=== PATIENT | female | born 1990 | race Two or more races ===

== ENCOUNTER 2019-06-28 16:12 | Emergency (ER) | payer OTHER ==
[~2019-06-28] VITALS: Ht 162.6 cm; Wt 117.8 kg
[2019-06-28 16:15] VITALS: BP 135/99
[2019-06-28 16:53] LABS: BASOPHILS # (AUTO) 0.03 x10^3/uL (0-0.1); BASOPHILS % (AUTO) 0 % (0-1); EOSINOPHILS # (AUTO) 0.34 x10^3/uL (0-0.4); EOSINOPHILS % (AUTO) 6 % (1-7); LYMPHOCYTES # (AUTO) 1.98 x10^3/uL (1-3.4); LYMPHOCYTES % (AUTO) 32 % (22-44); MD NO; MEAN CORPUSCULAR HEMOGLOBIN 29.5 pg (27.0-34.8); MEAN CORPUSCULAR HGB CONC 32.3 g/dL (32.4-35.8); MEAN CORPUSCULAR VOLUME 91.2 fL (80-100); MEAN PLATELET VOLUME 10.4 fL (7.4-10.4); MONOCYTES # (AUTO) 0.43 x10^3/uL (0.2-0.8); MONOCYTES % (AUTO) 7 % (2-9); NEUTROPHILS # (AUTO) 3.41 x10^3/uL (1.8-6.8); NEUTROPHILS % (AUTO) 55 % (42-75); PLATELET COUNT 245 x10^3/uL (130-400); RED BLOOD COUNT 4.78 x10^6/uL (3.82-5.3); RED CELL DISTRIBUTION WIDTH 13.7 % (9.6-15.2)
[2019-06-28 17:02] LABS: ALBUMIN 3.9 g/dL (3.4-5.0); ANION GAP 8 mmol/L (5-15); CALCIUM 8.9 mg/dL (8.5-10.1); CHLORIDE 109 mmol/L (98-107); CREATININE 0.72 mg/dL (0.55-1.02)
--- NOTE | 2019-06-28 19:33 | NUR ---
PT RECLINED IN BED, RESPIRATIONS EVEN AND UNLABORED ON RA. AT BEDSIDE. SIDE RAIL UP, CALL LIGHT IN REACH. AWAITING ERMD EVAL.
== END 2019-06-28 21:14 | disposition home or self-care (01) ==
LOC: ED 21:05
DX: J03.90 Acute tonsillitis, unspecified (principal)
CPT/HCPCS: 36415; 71045; 80048; 82040; 85025; 93005; 99284

== ENCOUNTER → 2020-05-01 | Outpatient (CLI) | payer OTHER ==
[2020-05-01 09:58] LABS: BASOPHILS # (AUTO) 0.05 x10^3/uL (0-0.1); BASOPHILS % (AUTO) 1 % (0-1); EOSINOPHILS # (AUTO) 0.62 x10^3/uL (0-0.4); EOSINOPHILS % (AUTO) 9 % (1-7); LYMPHOCYTES # (AUTO) 2.03 x10^3/uL (1-3.4); LYMPHOCYTES % (AUTO) 30 % (22-44); MD NO; MEAN CORPUSCULAR HEMOGLOBIN 29.6 pg (27.0-34.8); MEAN CORPUSCULAR HGB CONC 32.1 g/dL (32.4-35.8); MEAN CORPUSCULAR VOLUME 92.1 fL (80-100); MEAN PLATELET VOLUME 8.7 fL (7.4-10.4); MONOCYTES # (AUTO) 0.28 x10^3/uL (0.2-0.8); MONOCYTES % (AUTO) 4 % (2-9); NEUTROPHILS # (AUTO) 3.88 x10^3/uL (1.8-6.8); NEUTROPHILS % (AUTO) 57 % (42-75); PLATELET COUNT 318 x10^3/uL (130-400); RED BLOOD COUNT 4.58 x10^6/uL (3.82-5.3); RED CELL DISTRIBUTION WIDTH 14.3 % (9.6-15.2)
[2020-05-01 10:05] LABS: INTERNATIONAL NORMALIZED RATIO 0.97 (0.93-1.1)
[2020-05-01 10:07] LABS: ALANINE AMINOTRANSFERASE 19 U/L (12-78); ALBUMIN 3.6 g/dL (3.4-5.0); ANION GAP 5 mmol/L (5-15); CALCIUM 8.9 mg/dL (8.5-10.1); CHLORIDE 107 mmol/L (98-107); CREATININE 0.58 mg/dL (0.55-1.02)
[2020-05-01 10:11] LABS: ALKALINE PHOSPHATASE 55 U/L (45-117); BILIRUBIN,TOTAL 0.4 mg/dL (0.2-1.0); TOTAL PROTEIN 7.7 g/dL (6.4-8.2)
== END | disposition home or self-care (01) ==
LOC: STAR 07:23
PROVIDERS: ATTEND Obstetrics & Gynecology
DX: Z01.818 Encounter for other preprocedural examination (principal); Z20.828 Contact with and (suspected) exposure to other viral communicable diseases; R19.00 Intra-abdominal and pelvic swelling, mass and lump, unspecified site; R10.2 Pelvic and perineal pain
CPT/HCPCS: 36415; 80053; 84703; 85025; 85610; 85730; 87635; 93005

== ENCOUNTER 2020-05-05 06:49 | Inpatient (IN) | payer OTHER ==
[~2020-05-05] VITALS: Ht 160 cm; Wt 87.0 kg
[2020-05-05] MEDS ORDERED: CHLORHEXIDINE 15 ML UDC ONE (07:56)
[2020-05-05] MEDS ORDERED: LACTATED RINGERS 1,000 ML IV SCH (08:14)
[2020-05-05 08:23] LABS: HCG UR SG 1.022 (1.003-1.030)
[2020-05-05] MEDS ORDERED: CEFOTETAN PMX 2GM/50ML 50 ML IV ONE (08:30)
[2020-05-05] MEDS ORDERED: CHLORHEXIDINE 15 ML UDC MM ONE (08:30)
[2020-05-05] MEDS ORDERED: FENTANYL PF 250 MCG/5ML ONE ×2 (08:48→11:40)
[2020-05-05] MEDS ORDERED: MIDAZOLAM 1 MG/ML, 2ML ONE (08:48)
[2020-05-05] MEDS ORDERED: SODIUM CHLORIDE 0.9% 100 ML ONE (09:21)
[2020-05-05] MEDS ORDERED: VASOPRESSIN 20 UNIT/ML, 1ML ONE (09:22)
[2020-05-05] MEDS ORDERED: BUPIVACAINE/PF 0.5% ONE ×8 (09:43→10:19)
[2020-05-05] MEDS ORDERED: ROCURONIUM 10MG/ML,5ML ONE (09:51)
[2020-05-05] MEDS ORDERED: hydrALAzine 20 MG/ML, 1ML IV PRN (10:00)
[2020-05-05] MEDS ORDERED: MEPERIDINE/PF 25MG/0.5ML IVPush PRN (10:00)
[2020-05-05] MEDS ORDERED: ACETAMINOPHEN 325 MG TABLET PO PRN ×2 (10:00→12:30)
[2020-05-05] MEDS ORDERED: DIPHENHYDRAMINE 50 MG/ML, 1ML IVPush PRN ×2 (10:00→12:30)
[2020-05-05] MEDS ORDERED: EPHEDRINE 50 MG/ML, 1ML IVPush PRN (10:00)
[2020-05-05] MEDS ORDERED: LABETALOL 5MG/ML, 20ML IV PRN (10:00)
[2020-05-05] MEDS ORDERED: HYDROmorphone 1 MG/ML, 1ML INJ IVPush PRN (10:00)
[2020-05-05] MEDS ORDERED: OXYcodone 5 MG/5 ML ORAL.SOL UDC PO PRN (10:00)
[2020-05-05] MEDS ORDERED: PROMETHAZINE 12.5 MG SUPP PR PRN (10:00)
[2020-05-05] MEDS ORDERED: LORazepam 2 MG/ML, 1ML IVPush PRN (10:00)
[2020-05-05] MEDS ORDERED: INTERCEED 3 X 4 INCH DRESSING ONE (11:20)
[2020-05-05] MEDS ORDERED: ONDANSETRON 2MG/ML, 2ML ONE (11:25)
[2020-05-05] MEDS ORDERED: CEFAZOLIN 1,000 MG ONE (11:25)
[2020-05-05] MEDS ORDERED: PROPOFOL 10 MG/ML, 20ML ONE (11:25)
[2020-05-05] MEDS ORDERED: SUCCINYLCHOLINE 20 MG/ML, 10ML ONE (11:25)
[2020-05-05] MEDS ORDERED: DEXAMETHASONE 4 MG/ML, 1ML ONE (11:25)
[2020-05-05] MEDS ORDERED: SUGAMMADEX 200 MG/2 ML IVPush ONE (11:39)
[2020-05-05] MEDS ORDERED: BUPIVACAINE/PF 0.25% ONE (12:22)
[2020-05-05] MEDS ORDERED: EPINEPHRINE 1 MG/ML, 1ML ONE (12:22)
[2020-05-05] MEDS ORDERED: KETOROLAC 30 MG/1 ML IVPush PRN (12:30)
[2020-05-05] MEDS ORDERED: KETOROLAC 30 MG/1 ML ONE (13:07)
[2020-05-05] MEDS ORDERED: FENTANYL PF 100 MCG/2ML ONE (13:07)
[2020-05-05] MEDS: FENTANYL PF 100 MCG/2ML IV PRN ×2 (13:15→13:32)
[2020-05-05] MEDS ORDERED: ONDANSETRON 2MG/ML, 2ML IVPush PRN (15:30)
[2020-05-05] MEDS ORDERED: PROCHLORPERAZINE 5 MG/ML, 2ML IV PRN (15:30)
[2020-05-05] MEDS: LACTATED RINGERS 1,000 ML IV SCH (18:30)
[2020-05-05 19:24] VITALS: BP 143/92
[2020-05-05] MEDS: DOCUSATE 100 MG CAPSULE PO SCH (20:14)
[2020-05-06 00:01] VITALS: BP 134/89
[2020-05-06] MEDS: LACTATED RINGERS 1,000 ML IV SCH ×3 (01:30→18:29)
[2020-05-06 01:32] VITALS: BP 136/87
[2020-05-06 03:56] VITALS: BP 128/86
[2020-05-06 05:45] LABS: CHLORIDE 108 mmol/L (98-107)
[2020-05-06 05:51] LABS: ANION GAP 7 mmol/L (5-15); CALCIUM 8.5 mg/dL (8.5-10.1); CREATININE 0.51 mg/dL (0.55-1.02)
[2020-05-06 06:16] LABS: MEAN CORPUSCULAR HEMOGLOBIN 29.5 pg (27.0-34.8); MEAN CORPUSCULAR HGB CONC 32.4 g/dL (32.4-35.8); MEAN PLATELET VOLUME 8.3 fL (7.4-10.4); PLATELET COUNT 274 x10^3/uL (130-400); RED BLOOD COUNT 3.89 x10^6/uL (3.82-5.3); RED CELL DISTRIBUTION WIDTH 13.9 % (9.6-15.2)
[2020-05-06 06:41] LABS: BASOPHILS # (AUTO) 0.05 x10^3/uL (0-0.1); BASOPHILS % (AUTO) 0 % (0-1); EOSINOPHILS % (AUTO) 0 % (1-7); LYMPHOCYTES # (AUTO) 1.66 x10^3/uL (1-3.4); LYMPHOCYTES % (AUTO) 13 % (22-44); MD SCAN; MONOCYTES # (AUTO) 1.04 x10^3/uL (0.2-0.8); MONOCYTES % (AUTO) 8 % (2-9); NEUTROPHILS # (AUTO) 10.14 x10^3/uL (1.8-6.8); NEUTROPHILS % (AUTO) 79 % (42-75)
[2020-05-06 08:09] VITALS: BP 128/84
[2020-05-06] MEDS: DOCUSATE 100 MG CAPSULE PO SCH ×2 (08:53→20:19)
[2020-05-06 13:51] VITALS: BP 132/86
[2020-05-06 18:57] VITALS: BP 139/90
[2020-05-07 01:17] VITALS: BP 129/86
[2020-05-07] MEDS: LACTATED RINGERS 1,000 ML IV SCH (01:35)
[2020-05-07 07:16] VITALS: BP 129/88
[2020-05-07] MEDS: DOCUSATE 100 MG CAPSULE PO SCH ×2 (08:25→20:56)
[2020-05-07] MEDS ORDERED: MORPHINE SULFATE 4 MG/ML, 1ML IV PRN (09:00)
[2020-05-07] MEDS: OXYcodone/APAP 5/325MG TABLET PO PRN (11:28)
[2020-05-07 13:24] VITALS: BP 120/81
[2020-05-07 19:37] VITALS: BP 116/79
[2020-05-08] MEDS: OXYcodone/APAP 5/325MG TABLET PO PRN ×2 (01:18→08:01)
[2020-05-08 02:10] VITALS: BP 121/81
[2020-05-08 07:15] VITALS: BP 123/87
[2020-05-08] MEDS: DOCUSATE 100 MG CAPSULE PO SCH (08:01)
[2020-05-08 10:59] VITALS: BP 120/81
[2020-05-08 11:43] VITALS: BP 142/89
== END 2020-05-08 12:20 | disposition home or self-care (01) | DRG 742 ==
LOC: ORIP 06:49 → 4NE 14:27 → DCLOUNGE 05-08 11:59
PROVIDERS: ADMIT Obstetrics & Gynecology; ATTEND Obstetrics & Gynecology
PROC: 0UB90ZZ Excision of Uterus, Open Approach (ICD-10-PCS; principal; 2020-05-05 10:00)
DX: D25.9 Leiomyoma of uterus, unspecified (principal); Z68.41 Body mass index [BMI] 40.0-44.9, adult; E66.9 Obesity, unspecified; N97.9 Female infertility, unspecified; N85.9 Noninflammatory disorder of uterus, unspecified
CPT/HCPCS: 36415; S0020; 80048; 81025; 85025; 86850; 86870; 86880; 86900; 86922; 86923; 88305; G0378; J0171; J0690; J1100; J1885; J2250; J2270; J2405; J2704; J3010; J3490; C1765; J0330; J7120